=== PATIENT | female | born 1990 | race Caucasian/White ===

== ENCOUNTER → 2020-06-18 15:42 | Outpatient (CLI) | payer SELFPAY ==
[2020-06-20 14:37] LABS: t-Transglutaminase IgA <2 U/mL (0-3)
[2020-06-22 12:06] LABS: Clam <0.10 kU/L (Class 0); Codfish <0.10 kU/L (Class 0); Corn <0.10 kU/L (Class 0); Egg, White <0.10 kU/L (Class 0); Peanut <0.10 kU/L (Class 0); SCALLOP <0.10 kU/L (Class 0); Shrimp <0.10 kU/L (Class 0); Soybean <0.10 kU/L (Class 0); Walnut, (Food) <0.10 kU/L (Class 0); Wheat <0.10 kU/L (Class 0)
[2020-06-23 16:12] LABS: SESAME SEED <0.10 kU/L (Class 0)
== END ==
LOC: LAB 15:49
PROVIDERS: Visit Provider Otolaryngology
DX: T78.40XA Allergy, unspecified, initial encounter (principal); R11.10 Vomiting, unspecified
CPT/HCPCS: 36415; 83516; 86003